=== PATIENT | female | born 1965 | race Caucasian/White ===

== ENCOUNTER 2016-11-09 19:56 | Emergency (ER) | payer OTHER ==
[2016-11-09 20:09] VITALS: BP 145/89
--- NOTE | 2016-11-09 20:46 | ED EYE COMPLAINT ---
History of Present Illness General Chief Complaint: Eye Problems Stated Complaint: WALKED INTO A TREE BRANCH, RIGHT EYE SWELLING Source: patient, family Exam Limitations: no limitations Vital Signs & Intake/Output Vital Signs & Intake/Output Vital Signs Date Time Temp Pulse Resp B/P B/P Pulse O2 O2 Flow FiO2 Mean Ox Delivery Rate 11/09 2008 74 20 145/89 99 Allergies Coded Allergies: nut - unspecified (ANAPHYLAXIS 11/09/16) Reconcile Medications Ciprofloxacin (Ciloxan) 0.3 % DROPS 1 GTT OPH TID CORNEAL ABRASION Levothyroxine Sodium 125 MCG TABLET 1 TAB PO DAILY THYROID (Reported) Liothyronine Sodium 5 MCG TABLET 0.5 TAB PO DAILY THYROID (Reported) Triage Note: PER PT HURT RT EYE IN A FORCYTHIA CARTWRIGHT ATHIS NOON NOW RT EYE DRAINING AND TEARY PAIN 12/28 Triage Nurses Notes Reviewed? yes HPI: Patient was working in her garden when she accidentally was poked in her right eye by a branch push. Since then she feels foreign body sensation worse when she blinks. There is no photophobia. There is no blurry vision. There are no fevers or chills. She rates the pain at 6 out of 10. There is no radiation of the pain. Past History Travel History Traveled to [place] past 21 day No Medical History Any Pertinent Medical History? see below for history Neurological: NONE EENT: NONE Cardiovascular: NONE Respiratory: NONE Gastrointestinal: NONE Hepatic: NONE Renal: NONE Musculoskeletal: NONE Psychiatric: NONE Endocrine: THYROID Surgical History Surgical History: non-contributory Psychosocial History What is your primary language Zimbabwean Tobacco Use: Never used ETOH Use: occasional use Illicit Drug Use: denies illicit drug use Family History Hx Contributory? No Review of Systems Review of Systems Constitutional: Reports: no symptoms. Eyes: Reports: see HPI, pain. Respiratory: Reports: no symptoms. Cardiovascular: Reports: no symptoms. GI: Reports: no symptoms. Musculoskeletal: Reports: no symptoms. Neurological/Psychological: Reports: no symptoms. Immunologic/Allergic: Reports: no symptoms. Physical Exam General Appearance: well developed/nourished, alert, awake, anxious, moderate distress General Inspection: normal inspection Eyelid: normal inspection Conjunctiva/Sclera: normal inspection Cornea: normal inspection EOM: intact Pupil: normal accommodation, normal pupil, PERRL General Inspection: normal inspection Eyelid: normal inspection, everted for exam Conjunctiva/Sclera: normal inspection Cornea: examined w/fluorescein, abrasion, fluorescein dye uptake EOM: intact Pupil: normal accommodation, normal pupil, PERRL Anterior Chamber: normal inspection Posterior Segments: normal funduscopic Eye Right 1) ABRASION Physical Exam Nose: normal inspection Mouth/Throat: normal mouth inspection, pharynx normal Neck: normal inspection, supple, full range of motion Cardiovascular/Respiratory: normal breath sounds, normal peripheral pulses, regular rate/rhythm, no respiratory distress Neurologic/Psych: no motor/sensory deficits, awake, alert, oriented x 3, normal gait, normal mood/affect Progress Differential Diagnosis: corneal abrasion, corneal foreign body, conjunctivitis Plan of Care: USE EYE DROPS PRESCRIBED FOLLOW UP WITH YOUR EYE DOCTOR RETURN FOR ANY CONCERNS USE A COOL WASH CLOTH Departure Departure Disposition: HOME OR SELF CARE Condition: Stable Clinical Impression Primary Impression: Corneal abrasion Qualifiers: Encounter type: initial encounter Laterality: right Qualified Code: S05.01XA - Injury of conjunctiva and corneal abrasion without foreign body, right eye, initial encounter Referrals: EWELINA GORMAN MD (PCP/Family) Additional Instructions: USE EYE DROPS PRESCRIBED USE COOL WASH CLOTH FOLLOW UP WITH YOUR EYE DOCTOR RETURN FOR ANY CONCERNS Departure Forms: Customer Survey General Discharge Information Prescriptions: Current Visit Scripts Ciprofloxacin (Ciloxan) 1 GTT OPH TID #5 ML
[2016-11-09] MEDS ORDERED: CILOXAN5 ML OPH (21:09)
[2016-11-09] MEDS ORDERED: LIOTHYRONINE SO5 MC1 PO (21:11)
[2016-11-09] MEDS ORDERED: LEVOTHYROXINE125 MCG PO (21:11)
== END 2016-11-09 21:17 ==
LOC: ERH 19:56
DX: S05.01XA Injury of conjunctiva and corneal abrasion without foreign body, right eye, initial encounter (principal); W22.8XXA Striking against or struck by other objects, initial encounter; Y93.H2 Activity, gardening and landscaping; Y92.017 Garden or yard in single-family (private) house as the place of occurrence of the external cause